=== PATIENT | female | born 1960 | race Caucasian/White ===

== ENCOUNTER 2019-05-27 06:54 | Outpatient (CLI) | payer OTHER | END 2019-05-27 23:59 | disposition home or self-care (01) | LOC: CFH 06:54 | PROVIDERS: ATTEND Internal Medicine Cardiovascular Disease | DX: I36.1 Nonrheumatic tricuspid (valve) insufficiency (principal); I25.3 Aneurysm of heart; R94.31 Abnormal electrocardiogram [ECG] [EKG] | CPT/HCPCS: 93306 ==